=== PATIENT | female | born 1945 | race Native Hawaiian/Other Pacific Islander ===

== ENCOUNTER 2018-08-29 10:09 | Day surgery (SDC) | payer MEDICARE, OTHER, SELFPAY ==
[2018-08-29] VITALS (8 sets, daily range): BP systolic 129–160; BP diastolic 64–74; PULSE 57–65; RESP 11–16; TEMP 36.2–36.7; O2SAT 95–100; BMI 23.3
--- NOTE | 2018-08-29 | PATH_ITS ---
[facility] Accession Number: [id number] . 01 Material submitted: . PART A: colon - SIGMOID POLYP PART B: colon - ASCENDING COLON POLYP X2 . 02 Diagnosis: A. Sigmoid Colon, Polyp: Tubular adenoma. . B. Ascending Colon, Polyps: Fragments of sessile serrated adenoma and fragment of colonic mucosa with prominent benign lymphoid aggregate (two polyps removed). MRV/08/30/2018 . 02 Electronically signed: . Boyd Hernadez MD, PhD, Pathologist NPI- [id number] . 01 Gross description: . Part A: SIGMOID POLYP: Received in formalin is 1 fragment(s) of wall, soft tissue measuring 0.5 x 0.5 x 0.4 cm which is entirely submitted and submitted entirely in 1 cassette(s) Part B: ASCENDING COLON POLYP X2: Received in formalin are multiple fragment(s) of wall, soft tissue measuring 0.1 x 0.1 x 0.1 cm to 0.4 x 0.2 x 0.2 cm which is entirely submitted and submitted entirely in 1 cassette(s) /DMC /DMC . 02 Pathologist provided ICD-10: D12.2, D12.5 . 02 CPT . 972799, [id number] Performed at: 01 [facility] [address], [place], [place] [id number] MD Thanh Rodrigues MD Phone: [phone] Performed at: 02 [facility] [address] [place], [place] [id number] MD Tricia Abraham MD Phone: [phone]
--- NOTE | 2018-08-29 12:19 | PM.HP.1 ---
History of Present Illness Chief complaint: [id number] Patient History Social History household members: none Family & Social History Social History: household members none Review of Systems Review of Systems All systems reviewed & are unremarkable except as noted in HPI and below Exam Vital Signs (past 8 hours): - 08/29/18 10:45 Temperature 98.0 F Pulse Rate 65 Respiratory Rate 16 Blood Pressure 160/74 H Pulse Oximetry 99 Oxygen Delivery Method Room Air Narrative Exam Narrative: Awake alert and oriented x3, pupils equal round reactive to light, heart regular rate and rhythm, lungs clear to auscultation bilaterally, abdomen nontender and nondistended, extremities without edema, no gross neurologic deficits noted Assessment & Plan Assessment & Plan narrative: Screening colonoscopy
[2018-08-29] MEDS: MIDAZOLAM 5 MG/5 ML VIAL IV ×2 (12:37→12:38)
[2018-08-29] MEDS: fentaNYL 250 MCG/5 ML INJ IV (12:39)
--- NOTE | 2018-08-29 12:39 | PM.OP.ENDO ---
Operative Date/Time/Diagnoses Date of procedure: 08/29/18 Procedure & Clinicians Study performed: Colonoscopy with snare polypectomy and biopsy Moderate conscious sedation was administered by the endoscopy nurse and supervised by the endoscopist. The following parameters were monitored: Oxygen saturation, heart rate, blood pressure, and response to care. Sedation: 3 mg midazolam, 100 mcg fentanyl Indications: Colon cancer screening. Last colonoscopy about 10 years ago. Procedure Notes Procedure in detail: Prior to the procedure, history and physical was performed, and patient medications and allergies were reviewed. Preprocedure nursing history and assessment was reviewed. Patient identification and proposed procedure were verified by the physician and nurse in the procedure room. The physical status of the patient was reassessed after the procedure. After informed consent was obtained including risks, benefits, and alternatives, the scope was passed under direct vision. Throughout the procedure, the patient's blood pressure, pulse, and oxygen saturations were monitored continuously. The colonoscope was introduced through the anus and advanced to the cecum as identified by the appendiceal orifice and ileocecal valve. The patient tolerated the procedure well. Bowel prep was deemed adequate to detect polyps greater than 5 mm. LUCIANA and perianal examination unremarkable. Retroflexion in the rectum revealed grade 1 internal hemorrhoids Scattered medium mouth diverticula noted throughout the entire colon. 8 mm semi pedunculated polyp in the sigmoid colon was resected with a hot snare and retrieved Two sessile polyps measuring 3 mm and 5 mm were removed completely with a Jumbo biopsy forceps and retrieved. Sedation minutes: 18 Complications: other (EBL minimal. No complications) Plan for aftercare: Follow-up pathology results Repeat colonoscopy today to be determined based on pathology results Resume home medications High-fiber diet Patient has a contact number available for emergencies. The signs and symptoms of potential delayed complications were discussed with the patient. Return to normal activities tomorrow. Written discharge instructions were provided to the patient. Discharge home with escort
== END 2018-08-29 14:48 ==
LOC: ENDO 10:17
PROVIDERS: Visit Provider Internal Medicine
PROC: 0DJD8ZZ Inspection of Lower Intestinal Tract, Via Natural or Artificial Opening Endoscopic (ICD-10-PCS; CPT 45378; principal; 2018-08-29 11:30)
DX: Z12.11 Encounter for screening for malignant neoplasm of colon (principal); K64.0 First degree hemorrhoids; K57.30 Diverticulosis of large intestine without perforation or abscess without bleeding; D12.2 Benign neoplasm of ascending colon; D12.5 Benign neoplasm of sigmoid colon
CPT/HCPCS: 45385; 45380; 88305; J2250; J3010

== ENCOUNTER → 2018-12-10 11:18 | Outpatient (CLI) | payer MEDICARE, OTHER, SELFPAY ==
--- NOTE | 2018-12-10 | DI.RAD.S_ITS ---
PROCEDURE: [place] BARIUM SWALLOW INDICATIONS: SENSATION OF FOREIGN BODY IN THROAT COMPARISON: None. FINDINGS: Function: There is markedly decreased esophageal peristalsis. Delayed esophageal clearance. No elicited gastroesophageal reflux. There is normal transit of a calibrated barium tablet through the esophagus into the stomach. Morphology: Air-contrast images demonstrate normal mucosal morphology. Single contrast views show no esophageal strictures, extrinsic mass effects. Approximately 1 cm posterior diverticulum is noted at the level of C5-C6 in keeping with Zenker's diverticulum. Limited images of the stomach demonstrate normal appearance. IMPRESSION: Zenker's diverticulum. Esophageal dysmotility. Dictated by: Luis A Castellano M.D. on 12/10/2018 at 12:48 Approved by: Luis A Castellano M.D. on 12/10/2018 at 12:51
== END ==
PROVIDERS: Visit Provider Internal Medicine
DX: R09.89 Other specified symptoms and signs involving the circulatory and respiratory systems (principal); K22.5 Diverticulum of esophagus, acquired; K22.8 Other specified diseases of esophagus
CPT/HCPCS: 74220

== ENCOUNTER → 2020-06-01 10:46 | Outpatient (CLI) | payer MEDICARE, OTHER, SELFPAY ==
--- NOTE | 2020-06-01 | DI.RAD.S_ITS ---
PROCEDURE: FL BARIUM SWALLOW INDICATIONS: Dysphagia, oral phase COMPARISON: [facility], , [place] BARIUM SWALLOW, 12/10/2018, 12:30. FINDINGS: Function: There is decreased esophageal peristalsis. There is markedly prolonged esophageal clearance. No elicited gastroesophageal reflux. Morphology: Air-contrast images demonstrate normal mucosal morphology. Zenker diverticulum is again noted, grossly similar size and appearance since 12/10/18. There may be minimal interval enlargement since the prior study (approximately 1.1 cm , previously 0.8 cm). Limited images of the stomach demonstrate normal appearance. IMPRESSION: Redemonstrated Zenker diverticulum, with minimal enlargement since 12/10/18. Severe esophageal dysmotility Dictated by: Luis A Castellano M.D. on 06/01/2020 at 12:33 Approved by: Luis A Castellano M.D. on 06/01/2020 at 12:38
== END ==
PROVIDERS: PCP Otolaryngology; Referring Provider Otolaryngology; Visit Provider Otolaryngology
DX: R13.11 Dysphagia, oral phase (principal); K22.4 Dyskinesia of esophagus; K22.5 Diverticulum of esophagus, acquired
CPT/HCPCS: 74221

== ENCOUNTER → 2020-10-15 10:49 | Outpatient (CLI) | payer MEDICARE, OTHER, SELFPAY ==
--- NOTE | 2020-10-15 | DI.US.S_ITS ---
PROCEDURE: US CAROTID DOPPLER BI INDICATIONS: BILATERAL STENOSIS TECHNIQUE: Color and pulse Doppler interrogation was performed of both carotid systems, with image documentation and velocity measurements. COMPARISON: [facility] Ul[facility]ound, [place], US CAROTID BILATERAL, 05/07/2019, 11:04. FINDINGS: Stenosis calculations are based on SRU (Society of Radiologists in Ultrasound) criteria. Right side: Brachial blood pressure: 139/76 mm Hg. Common carotid artery peak systolic velocity: 81 cm/sec. Internal carotid artery peak systolic velocity: 93 cm/sec. Internal carotid artery end diastolic velocity: 37 cm/sec. External carotid artery peak systolic velocity: 140 cm/sec. ICA/CCA peak systolic ratio: 1.2 Jensen scale imaging description: Moderate to marked multifocal calcified atherosclerotic plaque. Percent internal carotid artery stenosis: Less than 50%. Vertebral artery: Flow direction is antegrade. Left side: Brachial blood pressure: 155/75 mm Hg. Common carotid artery peak systolic velocity: 104 cm/sec. Internal carotid artery peak systolic velocity: 115 cm/sec. Internal carotid artery end diastolic velocity: 26 cm/sec. External carotid artery peak systolic velocity: 102 cm/sec. ICA/CCA peak systolic ratio: 1.1. Jensen scale imaging description: Moderate to marked multifocal calcified atherosclerotic plaque. Percent internal carotid artery stenosis: Less than 50%. Vertebral artery: Flow direction is antegrade. IMPRESSION: Atherosclerotic disease with less than 50% stenosis of the internal carotid arteries bilaterally. Velocities have decreased when compared to the prior exam from 05/07/2019. Dictated by: Delmer Carrizales M.D. on 10/15/2020 at 12:27 Approved by: Delmer Carrizales M.D. on 10/15/2020 at 12:31
== END ==
PROVIDERS: PCP Family Medicine; Referring Provider Internal Medicine Cardiovascular Disease; Visit Provider Internal Medicine Cardiovascular Disease
DX: I65.23 Occlusion and stenosis of bilateral carotid arteries (principal)
CPT/HCPCS: 93880

== ENCOUNTER → 2021-06-10 10:48 | Outpatient (CLI) | payer MEDICARE, OTHER, SELFPAY ==
[2021-06-11 17:10] LABS: Zinc 89 ug/dL (44-115)
[2021-06-11 21:30] LABS: SS A Ro Sjogrens Antibody < 0.2 AI (0.0-0.9); SS B La Sjogrens Antibody 0.2 AI (0.0-0.9)
== END ==
PROVIDERS: PCP Family Medicine; Referring Provider Internal Medicine Gastroenterology; Visit Provider Internal Medicine Gastroenterology
DX: R19.7 Diarrhea, unspecified (principal); K22.5 Diverticulum of esophagus, acquired; K21.9 Gastro-esophageal reflux disease without esophagitis; R13.14 Dysphagia, pharyngoesophageal phase
CPT/HCPCS: 36415; 84630; 86235

== ENCOUNTER → 2021-07-12 10:44 | Outpatient (CLI) | payer MEDICARE, OTHER, SELFPAY ==
[2021-07-12 13:47] LABS: COVID19 -Nasal RAPID Negative (Negative)
== END ==
PROVIDERS: PCP Family Medicine; Visit Provider Family Medicine Sleep Medicine
DX: Z20.822 Contact with and (suspected) exposure to COVID-19 (principal)
CPT/HCPCS: 87635; C9803

== ENCOUNTER 2021-07-14 07:25 | Day surgery (SDC) | payer MEDICARE, OTHER, SELFPAY ==
[2021-07-14 07:49] VITALS: BP 179/73; PULSE 74; RESP 16; TEMP 35.8; O2SAT 99; BMI 24.8
[2021-07-14] MEDS: SODIUM CHLORIDE 0.9% 1,000 ML 84 ML IV (09:00)
--- NOTE | 2021-07-14 09:00 | PM.HP.1 ---
History of Present Illness History of Present Illness Date Patient Seen: 07/14/21 Chief complaint: SDC Narrative: Regurgitation status post removal of a Zenker's diverticulum. Also with mild dysphagia. Patient History Family & Social History Social History: household members significant other,none Tobacco & Substance use: Smoking Status Never smoker alcohol intake never Substance Use Type does not use Meds Home Medications and Allergies Home Medications Medication Instructions Recorded Confirmed Type allopurinol 300 mg tablet 300 mg PO DAILY 07/14/21 07/14/21 History clopidogrel 300 mg tablet 75 mg PO DAILY 07/14/21 07/14/21 History diltiazem HCl 180 mg 180 mg PO DAILY 07/14/21 07/14/21 History capsule,extended release 24 hr, controlled omeprazole 20 mg capsule,delayed 20 mg PO DAILY 07/14/21 07/14/21 History release rosuvastatin 40 mg tablet 40 mg PO DAILY 07/14/21 07/14/21 History telmisartan 40 mg tablet (Micardis) 40 mg PO DAILY 07/14/21 07/14/21 History Allergies Allergy/AdvReac Type Severity Reaction Status Date / Time Penicillins Allergy Anaphylaxis Verified 07/14/21 07:44 acetaminophen [From Percocet] AdvReac Vomiting Verified 07/14/21 07:44 ampicillin AdvReac Vomiting Verified 07/14/21 07:44 azithromycin AdvReac Vomiting Verified 07/14/21 07:44 cephalexin [From Keflex] AdvReac Vomiting Verified 07/14/21 07:44 oxycodone [From Percocet] AdvReac Vomiting Verified 07/14/21 07:44 Exam Vital Signs (past 8 hours): - 07/14/21 07:49 Temperature 96.4 F L Pulse Rate 74 Respiratory Rate 16 Blood Pressure 179/73 H Pulse Oximetry 99 Oxygen Delivery Method Room Air Oxygen Flow Rate 0 Narrative Exam Narrative: Oropharynx free of lesions Chest clear to auscultation percussion Cardiac exam reveals no S3 or murmur. Assessment & Plan Assessment & Plan narrative: History of Zenker's diverticulotomy. Need to evaluate area and the distal esophagus due to increased reflux. Risks, benefits, alternatives have been explained. Time Spent With Patient Critical Care time: I spent a total of [] minutes of critical care time on this patient's care today; this time is exclusive of procedural time.
--- NOTE | 2021-07-14 09:02 | PM.OP.EGD ---
Operative Date/Time/Diagnoses Date of procedure: 07/14/21 Pre-op diagnosis: See indication and findings Procedure & Clinicians Study performed: EGD Indications: Increased symptoms of reflux and regurgitation status post Zenker's diverticulotomy Procedure Notes Procedure in detail: After informed consent was obtained the patient was placed in left lateral decubitus position. The video upper scope was placed into the oropharynx and with the patient's help swallowed into the esophagus. The esophagus stomach and duodenum were carefully examined. On withdrawal, retroflexed view the GE junction was performed. The scope was removed. The patient tolerated procedure well. Blood loss none Complications none Sedation mac Findings 1. Normal hypopharynx and upper esophagus 2. Normal distal esophagus with completely normal squamocolumnar junction. This was of normal tightness 3. No evidence of hiatal hernia on straight or retroflexed view. 4. Completely normal stomach 5. Normal duodenal bulb and sweep Adriane should restart her medications and concentrate on lifestyle modifications. She can follow-up with me in a month to let me know how she is doing if she has concerns. She should restart her Plavix now.
[2021-07-14 09:25] VITALS: BP 112/44; PULSE 67; RESP 15; TEMP 36.2; O2SAT 97
[2021-07-14 09:30] VITALS: BP 129/60; PULSE 74; RESP 16; O2SAT 16
[2021-07-14 09:35] VITALS: BP 130/56; PULSE 64; RESP 15; O2SAT 100
[2021-07-14 09:40] VITALS: BP 146/59; PULSE 63; RESP 12; O2SAT 98
[2021-07-14 09:46] VITALS: BP 156/62; PULSE 61; RESP 16; O2SAT 100
--- NOTE | 2021-07-14 09:56 | SUR.PHASEII ---
0900 Discharge instructions reviewed with pt and she verbalized understanding.
== END 2021-07-14 10:40 | disposition home or self-care (01) ==
PROVIDERS: PCP Family Medicine; Referring Provider Internal Medicine Gastroenterology; Visit Provider Internal Medicine Gastroenterology
PROC: 0DJ08ZZ Inspection of Upper Intestinal Tract, Via Natural or Artificial Opening Endoscopic (ICD-10-PCS; CPT 43235; principal; 2021-07-14 09:00)
DX: K21.9 Gastro-esophageal reflux disease without esophagitis (principal); R11.10 Vomiting, unspecified; Z98.890 Other specified postprocedural states
CPT/HCPCS: 43235; J2405; J2704

== ENCOUNTER 2022-04-04 14:09 | Day surgery (SDC) | payer MEDICARE, OTHER, SELFPAY ==
[2022-04-04 15:13] VITALS: BP 179/72; PULSE 82; RESP 16; TEMP 36.6; O2SAT 100; BMI 23.0
[2022-04-04] MEDS: LACTATED RINGERS 1,000 ML 84 ML IV (15:27)
--- NOTE | 2022-04-04 16:21 | P.HP_ITS ---
History of Present Illness History of Present Illness Date Patient Seen: 04/04/22 Time Patient Seen: 16:21 Chief complaint: SDC Narrative: I reviewed my recent office note. No significant changes. No recent bleeding. The patient is off her Plavix x6 days. She does fluctuate between loose stools and constipation Patient History Family & Social History Social History: household members significant other,none Tobacco & Substance use: Smoking Status Never smoker alcohol intake never Substance Use Type does not use Meds Home Medications and Allergies Home Medications Medication Instructions Recorded Confirmed Type allopurinol 300 mg tablet 300 mg PO DAILY 07/14/21 04/04/22 History clopidogrel 300 mg tablet 75 mg PO DAILY 07/14/21 04/04/22 History diltiazem HCl 180 mg 180 mg PO DAILY 07/14/21 07/14/21 History capsule,extended release 24 hr, controlled rosuvastatin 40 mg tablet 40 mg PO DAILY 07/14/21 04/04/22 History telmisartan 40 mg tablet (Micardis) 40 mg PO DAILY 07/14/21 04/04/22 History Allergies Allergy/AdvReac Type Severity Reaction Status Date / Time Penicillins Allergy Anaphylaxis Verified 04/04/22 15:06 acetaminophen [From Percocet] AdvReac Vomiting Verified 04/04/22 15:06 ampicillin AdvReac Vomiting Verified 04/04/22 15:06 azithromycin AdvReac Vomiting Verified 04/04/22 15:06 cephalexin [From Keflex] AdvReac Vomiting Verified 04/04/22 15:06 oxycodone [From Percocet] AdvReac Vomiting Verified 04/04/22 15:06 Review of Systems Review of Systems ROS: Yes All systems reviewed with the patient and are negative except as o therwise documented Exam Vital Signs (past 8 hours): - 04/04/22 15:13 Temperature 97.9 F Pulse Rate 82 Respiratory Rate 16 Blood Pressure 179/72 H Pulse Oximetry 100 Oxygen Delivery Method Room Air Oxygen Delivery Method Room Air Const General: cooperative HENMT Head: normal to inspection Eyes General: appearance normal, both eyes and all related structures Neck Neck: normal visual inspection Chest Chest: normal inspection of the chest Resp Effort & Inspection: normal respiratory effort Cardio Rate: regular rate GI Inspection: normal to inspection Skin General: no rashes or lesions noted Neuro General: patient alert and patient awake Extrem General: normal to inspection and no pedal edema Psych Appearance: grossly normal Assessment & Plan Assessment & Plan narrative: 76-year-old female with a change in bowel habit associated with temporary left lower quadrant pain and temporary GI bleeding. There is a history of colon polyps. Diagnostic colonoscopy is pursued today Time Spent With Patient Critical Care time: I spent a total of [] minutes of critical care time on this patient's care today; this time is exclusive of procedural time.
--- NOTE | 2022-04-04 16:26 | PM.PREOP ---
Pre-operative Note Interval Note History & Physical reviewed/Exam performed by Physician: Yes Changes to H&P: Yes ASA Class (for procedural sedation): III
--- NOTE | 2022-04-04 16:49 | P.OP.COLON_ITS ---
Operative Date/Time/Diagnoses Date of procedure: 04/04/22 Time of procedure: 16:49 Pre-op diagnosis: Altered bowel habits with constipation alternating with loose bowel. Remote history of bleeding. Personal history of colon polyps. Post-op diagnosis: same Procedure & Clinicians Study performed: Colonoscopy Same procedure as scheduled: Yes Indications: Altered bowel habits with constipation alternating with loose bowel. Remote history of bleeding. Personal history of colon polyps. Surgeon: Ritesh Cooley Procedure Notes SCOAP/Timeout: Done Procedure in detail: After the risks and benefits were explained, written and verbal informed consent was obtained. The patient was brought into the procedure room and placed into the left lateral decubitus position. Please see anesthesia notes for sedation details. Digital rectal examination was accomplished. The scope was introduced into the patient and advanced under direct visualization to the cecum as identified by the appendiceal orifice and ileocecal valve. The scope was slowly withdrawn to carefully examine the mucosa for any defects or lesions. Comprehensive imaging was accomplished throughout the rectum including the dentate line. The colon was decompressed, the scope was then removed from the patient who tolerated the procedure well. Pediatric colonoscope Bowel prep adequate Scope withdrawal time: 7 minutes Sedation minutes: 19 Specimen(s): none sent Complications: none Impression: The patient had a fairly tortuous colon. There was diverticulosis starting in the sigmoid extending all the way into the ascending colon. No significant polyps mass lesions nor inflammatory features identified throughout. The terminal ileum was interrogated and appeared visually normal. Minimal grade 1 hemorrhoids appreciated on direct views. Endoscopic diagnosis 1. Grade 1 hemorrhoids 2. Diverticulosis 3. Tortuous colon Post-procedure Plan for aftercare: 1. The patient can resume Plavix starting today. 2. Increase fiber sup plementation. Titrate the dose to achieve soft regular consistent evacuations. Disposition: PACU
[2022-04-04 16:50] VITALS: BP 102/48; PULSE 66; RESP 15; TEMP 36.8; O2SAT 98
[2022-04-04 16:56] VITALS: BP 106/53; PULSE 64; RESP 14; O2SAT 99
[2022-04-04 17:01] VITALS: BP 144/65; PULSE 70; RESP 15; TEMP 36.8; O2SAT 100
--- NOTE | 2022-04-04 18:46 | SUR.PHASEII ---
1745: Assumed care of pt at 1730. Used BR, dressed independently, IV DC'd intact, and ready to discharge home. Discharge instructions reviewed by previous RN, verified pt has no further questions. Pt left unit stable via w/c with all personal belongings and writen instructions to ER entrance where spouse was waiting to transport pt home.
== END 2022-04-04 17:45 | disposition home or self-care (01) ==
PROVIDERS: PCP Family Medicine; Referring Provider Internal Medicine Gastroenterology; Visit Provider Internal Medicine Gastroenterology
PROC: 0DJD8ZZ Inspection of Lower Intestinal Tract, Via Natural or Artificial Opening Endoscopic (ICD-10-PCS; CPT 45378; principal; 2022-04-04 15:30)
DX: K59.00 Constipation, unspecified (principal); R19.7 Diarrhea, unspecified; Z86.010 Personal history of colon polyps; K64.0 First degree hemorrhoids; K57.30 Diverticulosis of large intestine without perforation or abscess without bleeding
CPT/HCPCS: 45378; J2405; J2704; J3010

== ENCOUNTER → 2022-09-02 11:55 | Outpatient (CLI) | payer MEDICARE, OTHER, SELFPAY ==
--- NOTE | 2022-09-02 | DI.US.S_ITS ---
PROCEDURE: US ABDOMEN LIMITED INDICATIONS: ELEVATED LFTS TECHNIQUE: Real-time scanning was performed of the abdominal and retroperitoneal organs, with image documentation. COMPARISON: None. FINDINGS: Liver: Liver echogenicity is slightly hyperechoic. No solid mass. Gallbladder: Absent. Biliary ducts: Intrahepatic bile ducts are non-dilated. Extrahepatic bile duct caliber measures 8 mm. Normal is 6-7 mm or less in diameter, or 10 mm or less post-cholecystectomy. Pancreas: Visualized portions of the pancreas are sonographically normal. Miscellaneous: No free abdominal fluid. IMPRESSION: Mildly increased liver echogenicity, likely mild hepatic steatosis. Dictated by: Tramaine Reyes M.D. on 09/02/2022 at 13:02 Approved by: Tramaine Reyes M.D. on 09/02/2022 at 13:03
== END ==
PROVIDERS: PCP Family Medicine; Referring Provider Internal Medicine Gastroenterology; Visit Provider Internal Medicine Gastroenterology
DX: R74.8 Abnormal levels of other serum enzymes (principal)
CPT/HCPCS: 76705

== ENCOUNTER → 2024-01-16 | Outpatient (CLI) | payer MEDICARE, OTHER, SELFPAY ==
--- NOTE | 2024-01-16 15:34 | DI.US.S_ITS ---
PROCEDURE: US CAROTID DOPPLER BI INDICATIONS: BILATERAL CAROTID ARTERY STENOSIS TECHNIQUE: Color and pulse Doppler interrogation was performed of both carotid systems, with image documentation and velocity measurements. COMPARISON: [facility], [place], US CAROTID DOPPLER BI, 10/15/2020, 11:14. FINDINGS: Stenosis calculations are based on SRU (Society of Radiologists in Ultrasound) criteria. Right side: Brachial blood pressure: 170 or 72 mm Hg. Common carotid artery peak systolic velocity: 117.7 cm/sec. Internal carotid artery peak systolic velocity: 142 cm/sec. Internal carotid artery end diastolic velocity: 27 cm/sec. External carotid artery peak systolic velocity: 262 cm/sec. ICA/CCA peak systolic ratio: 1.2 . Jensen scale imaging description: Heavy scattered plaque. Percent internal carotid artery stenosis: 50-69% stenosis . Vertebral artery: Flow direction is antegrade. Left side: Brachial blood pressure: 187/79 mm Hg. Common carotid artery peak systolic velocity: 137 cm/sec. Internal carotid artery peak systolic velocity: 161 cm/sec. Internal carotid artery end diastolic velocity: 47 cm/sec. External carotid artery peak systolic velocity: 199 cm/sec. ICA/CCA peak systolic ratio: 1.2 . Jensen scale imaging description: Heavy scattered plaque Percent internal carotid artery stenosis: 50-69% stenosis . Vertebral artery: Flow direction is antegrade. IMPRESSION: 50-69% bilateral internal carotid artery stenosis which appears similar on the right and slightly increased on the left compared to prior exam. Dictated by: Bryn Dubois [facility] Interpreted: Thanh Perry MD on 01/17/2024 at 15:54 Transcribed by: STEFANIA on 01/17/2024 at 15:55 Approved by: Thanh Perry M.D. on 01/24/2024 at 8:27
== END ==
LOC: US 15:33
PROVIDERS: PCP Family Medicine; Referring Provider Internal Medicine; Visit Provider Internal Medicine
DX: I65.23 Occlusion and stenosis of bilateral carotid arteries (principal)
CPT/HCPCS: 93880

== ENCOUNTER → 2024-09-09 08:23 | Outpatient (CLI) | payer MEDICARE, OTHER, SELFPAY ==
[2024-09-09 09:06] LABS: Add Manual Diff / Slide Review NO; Hematocrit 44.7 % (36-46); Hemoglobin 14.8 g/dL (12.0-16.0); Lymphocytes Absolute Auto 1400 /uL (1100-4500); Mean Corpuscular HGB Conc 33.1 % (30-36); Mean Corpuscular Hemoglobin 29.5 PG (26-34); Mean Corpuscular Volume 89.4 fL (80-100); Platelet Count 216 X10^3/uL (150-400)
[2024-09-09 09:30] LABS: Cholesterol 175 mg/dL (140-199); HDL Cholesterol 73 mg/dL (40-60); Triglycerides 98 mg/dL (35-150)
[2024-09-09 09:33] LABS: Alanine Aminotransferase 35 IU/L (<35); Albumin 4.7 g/dL (3.5-5.0); Albumin Globulin Ratio 1.3 (1.0-2.8); Alkaline Phosphatase 79 U/L (38-126); Blood Urea Nitrogen 21 mg/dL (7-17); Calcium 9.2 mg/dL (8.4-10.2); Carbon Dioxide 30 mmol/L (22-32); Chloride 103 mmol/L (98-107); Estimated Glomerular Filt Rate > 60 mL/min (>60); Globulin 3.7 g/dL (1.7-4.1); Glucose 132 mg/dL (70-99); HEMOLYSIS < 15 (0-50); Potassium 4.6 mmol/L (3.4-5.1); Sodium 141 mmol/L (137-145); Total Protein 8.4 g/dL (6.3-8.2)
[2024-09-09 09:48] LABS: Free T4, Direct Thyroxine 1.10 ng/dL (0.78-2.19)
[2024-09-09 10:02] LABS: Thyroid Stimulating Hormone 2.07 uIU/mL (0.47-4.68)
== END ==
PROVIDERS: PCP Family Medicine; Referring Provider Internal Medicine; Visit Provider Internal Medicine
DX: I20.9 Angina pectoris, unspecified (principal); R09.89 Other specified symptoms and signs involving the circulatory and respiratory systems
CPT/HCPCS: 36415; 80053; 80061; 84439; 84443; 85025

== ENCOUNTER → 2024-10-03 10:27 | Outpatient (CLI) | payer MEDICARE, OTHER, SELFPAY ==
--- NOTE | 2024-10-03 10:28 | DI.US.S_ITS ---
PROCEDURE: US CAROTID DOPPLER BI INDICATIONS: SUPRAVENTRICULAR TACHYCARDIA TECHNIQUE: Color and pulse Doppler interrogation was performed of both carotid systems, with image documentation and velocity measurements. Technically challenging exam due to dense plaque. COMPARISON: [facility], [place], US CAROTID DOPPLER BI, 01/16/2024, 16:05. FINDINGS: Stenosis calculations are based on SRU (Society of Radiologists in Ultrasound) criteria. Right side: Brachial blood pressure: 182/81 mm Hg. Common carotid artery peak systolic velocity: 99 cm/sec. Internal carotid artery peak systolic velocity: 155 cm/sec. (Previously 142 cm/sec). Internal carotid artery end diastolic velocity: 43 cm/sec. External carotid artery peak systolic velocity: 148 cm/sec. ICA/CCA peak systolic ratio: 1.6. Jensen scale imaging description: Extensive plaque. Percent internal carotid artery stenosis: 50-69% stenosis. Vertebral artery: Flow direction is antegrade. Left side: Brachial blood pressure: 167/81 mm Hg. Common carotid artery peak systolic velocity: 127 cm/sec. Internal carotid artery peak systolic velocity: 177 cm/sec. (previously 161 cm/sec). Internal carotid artery end diastolic velocity: 50 cm/sec. External carotid artery peak systolic velocity: 125 cm/sec. ICA/CCA peak systolic ratio: 1.4. Jensen scale imaging description: Extensive plaque. Percent internal carotid artery stenosis: 50-69% stenosis. Vertebral artery: Flow direction is antegrade. IMPRESSION: 1. Right ICA: 50-69% stenosis. 2. Left ICA: 50-69% stenosis. 3. Antegrade flow in the bilateral vertebral arteries. Dictated by: Jarad Rivas M.D. on 10/04/2024 at 18:00 Approved by: Jarad Rivas M.D. on 10/04/2024 at 18:03
--- NOTE | 2024-10-03 10:29 | DI.ECHO.S_ITS ---
[facility] : : [address] : : [place] : : [id number] : : Phone: [phone] Echocardiogram Report + + :Name: LORENE ZAYAS Study Date: 10/03/2024 Height: 63 in : :[facility] ReadingLocation: Weight: 126 lb : : Gender: Female BSA: 1.6 m2 : :: 1945 Age: 79 yrs BP: 171/84 mmHg: :Reason For Study: SUPRAVENTRICULAR TACHYCARDIA : :Ordering Physician: MARY TANNER Performed By: Mela Rosenbaum : :Referring: MARY TANNER : + + Interpretation Summary 1. The left ventricular contractility is normal. Estimated ejection fraction is greater than 60% with no segmental wall motion abnormalities. Mild asymmetrical septal hypertrophy without obstruction. Normal diastolic function. 2. The right ventricular contractility is normal. 3. All cardiac chambers are of normal size. 4. No significant valvular abnormalities. 5. No obvious intracardiac shunts. 6. No obvious intracardiac masses nor thrombi. 7. No hemodynamically significant pericardial effusion. 8. Low right-sided filling pressures. Conclusion: Normal biventricular function with no significant valvular abnormalities. When compared with previous echocardiogram, no significant changes have occurred. Procedure: A two-dimensional transthoracic echocardiogram with color flow and Doppler was performed. The study quality was technically adequate. Comparison is made with the echocardiogram of 06/24/2019. The patient was in sinus rhythm with heart rates between 69-72 bpm during the exam. Left Ventricle: The left ventricle is normal in size. There is mild asymmetric left ventricular hypertrophy. The ejection fraction is estimated to be 60-65%. Normal diastolic function. Right Ventricle: The right ventricle is normal in size and function. Atria: The left atrial size is normal. Right atrial size is normal. There is no Doppler evidence for an interatrial shunt. Mitral Valve: The mitral valve leaflets appear borderline thickened. There is mild mitral annular calcification. There is trace mitral regurgitation. Aortic Valve: The aortic valve is trileaflet. There is mild aortic valve sclerosis. There is no aortic valve stenosis. There is trace aortic regurgitation. Tricuspid Valve: The tricuspid valve leaflets are thin and pliable. There is trace tricuspid regurgitation. The right ventricular systolic pressure is estimated to be at least 23 mmHg based on an estimated right atrial pressure of 3 mm Hg. Pulmonic Valve: The pulmonic valve leaflets are thin and pliable; valve motion is normal. There is no pulmonic valvular regurgitation. Great Vessels: The aortic root is normal size. The dimensions of the ascending aorta are normal. The IVC is of normal diameter and collapses greater than 50% with a sniff. This suggests a low right atrial pressure of 3 mm Hg. Pericardium/ Pleura There is an anterior echo-free space consistent with a fat pad. There is no pericardial effusion. There is no pleural effusion. MMode/2D Measurements & Calculations LVIDd: 3.7 cm LVOT diam: 2.0 cm LVIDs: 2.5 cm Ao root diam: 2.7 cm FS: 33.3 % asc Aorta Diam: 2.8 cm IVSd: 1.2 cm Ao Arch Diam (Prox Trans): 2.3 cm LVPWd: 0.89 cm LV black. diameter/BSA (cm/m^2): 2.3 LV sys. diameter/BSA (cm/m^2): 1.6 LA A2 area: 10.4 cm2 RA long axis: 4.3 cm LA A4 area: 12.5 cm2 RA area: 11.2 cm2 LA length (vol): 4.3 cm RA vol: 24.9 ml LA vol: 25.5 ml RA : 15.6 ml/m2 LA vol index: 16.1 ml/m2 IVC diam: 1.1 cm RVD1 (basal): 3.3 cm RVD2 (mid): 2.7 cm TAPSE: 1.6 cm Doppler Measurements & Calculations Ao V2 max: 149.9 cm/sec LVOT Max Dl: 89.4 cm/sec Ao V2 mean: 104.1 cm/sec LV V1 max P.2 mmHg Ao max P.0 mmHg LV V1 VTI: 22.2 cm Ao mean P.8 mmHg JANESSA(I,D): 2.2 cm2 Ao V2 VTI: 31.1 cm JANESSA(V,D): 1.9 cm2 sev ratio: 0.71 JANESSA indexed to BSA (cm^2/m^2): 1.4 MV E max dl: 71.6 cm/sec TR max dl: 222.2 cm/sec MV A max dl: 126.5 cm/sec TR max P.7 mmHg MV E/A: 0.57 PA V2 max: 91.8 cm/sec Med Peak E' Dl: 6.5 cm/sec PA V2 mean: 65.7 cm/sec E/E' med: 11.0 PA mean P.9 mmHg Lat Peak E' Dl: 5.2 cm/sec PA pr(Accel): 45.2 mmHg E/E' lat: 13.8 E/e' average: 12.4 MV dec time: 0.34 sec SV(ANISH): 69.6 ml Reading Physician:REJI
--- NOTE | 2024-10-03 18:15 | DI.NM.S_ITS ---
DATE OF SERVICE: 10/03/2024 EXERCISE STRESS TEST INDICATIONS: Fatigue, PSVT. CARDIAC STRESS: The patient underwent exercise stress test under the supervision of an attending staff as per standard protocol. She walked on Artur protocol for 6 minutes, achieved maximum heart rate of 122, which was 88% of target heart rate. Resting blood pressure 160/94 and peak blood pressure 182/86 with normal blood pressure response. JOCELYNE - 19%, seven METS of workload. Baseline rhythm sinus. During stress, no convincing ischemic changes seen. No significant arrhythmias. No chest pain. Had some shortness of breath. Normal recovery. CONCLUSION: Exercise stress test is negative for inducible ischemia. Good exercise tolerance. Normal hemodynamic response. No ischemic symptoms or EKG changes. No significant arrhythmias. Overall, low-risk exercise stress test. Adriane Colby - ABDIEL/ayala/JAKY doc#: [id number]/job#: [id number] dd: 10/03/2024 17:03:00 dt: 10/03/2024 17:59:00 DICTATING /COPIES TO: Viral Horowitz MD COPIES MNE: BURT;
== END ==
LOC: US 10:28
PROVIDERS: PCP Family Medicine; Referring Provider Internal Medicine; Visit Provider Internal Medicine
DX: I34.81 Nonrheumatic mitral (valve) annulus calcification (principal); I35.8 Other nonrheumatic aortic valve disorders; I47.10 Supraventricular tachycardia, unspecified; I20.89 Other forms of angina pectoris; I65.23 Occlusion and stenosis of bilateral carotid arteries
CPT/HCPCS: 93017; 93306; 93880

== ENCOUNTER → 2024-10-15 08:14 | Outpatient (CLI) | payer MEDICARE, OTHER, SELFPAY ==
--- NOTE | 2024-10-15 08:17 | DI.US.S_ITS ---
PROCEDURE: US ABDOMEN COMPLETE INDICATIONS: abdominal bloating TECHNIQUE: Real-time scanning was performed of the abdominal and retroperitoneal organs, with image documentation. COMPARISON: [facility], , US ABDOMEN LIMITED, 09/02/2022, 12:11. FINDINGS: Liver: Liver measures 13 cm. Slightly increased echogenicity. Gallbladder: Absent Biliary ducts: Intrahepatic bile ducts are non-dilated. Extrahepatic bile duct caliber measures 4 mm. Normal is 6-7 mm or less in diameter, or 10 mm or less post-cholecystectomy. Pancreas: Unremarkable, partially visualized Spleen: Spleen is normal in size and homogeneous in echotexture. Kidneys: Kidneys are normal in size and echotexture. Right kidney measures 9 cm long; left kidney measures 10 cm long. No hydronephrosis or nephrolithiasis. No solid masses. Aorta: Visualized aorta is normal in caliber at less than 3 cm. Iliacs: Proximal common iliac arteries are normal in caliber at less than 2.5 cm. IVC: Intrahepatic inferior vena cava is patent. Miscellaneous: No free abdominal fluid. IMPRESSION: Slightly increased hepatic echogenicity, nonspecific, most commonly steatosis. CBD is nondilated. Gallbladder is absent. Dictated by: To Nicole M.D. on 10/15/2024 at 14:44 Approved by: To Nicole M.D. on 10/15/2024 at 14:45
== END ==
LOC: US 08:15
PROVIDERS: PCP Family Medicine; Referring Provider Internal Medicine Gastroenterology; Visit Provider Internal Medicine Gastroenterology
DX: K59.00 Constipation, unspecified (principal); R14.0 Abdominal distension (gaseous); Z90.49 Acquired absence of other specified parts of digestive tract
CPT/HCPCS: 76700